=== PATIENT | male | born 1960 | race Caucasian/White ===

== ENCOUNTER 2016-11-06 12:49 | Emergency (ER) | payer OTHER ==
[~2016-11-06] VITALS: Ht 180.3 cm; Wt 136.1 kg
[2016-11-06] MEDS ORDERED: TETRACAINE 0.5% OPHTH SOLN 4ML OS ONE (13:45)
[2016-11-06] MEDS ORDERED: FLUORESCEIN OPHTH 1 MG STRIP OS ONE (13:45)
[2016-11-06] MEDS ORDERED: OFLO0.3D57 OS (14:02)
[2016-11-06 14:24] VITALS: BP 134/76
== END 2016-11-06 14:38 | disposition home or self-care (01) ==
LOC: M ED 14:08
DX: H10.212 Acute toxic conjunctivitis, left eye (principal)

== ENCOUNTER 2017-04-14 22:50 | Emergency (ER) | payer OTHER ==
[~2017-04-14] VITALS: Ht 180.3 cm; Wt 136.4 kg
[~2017-04-14 22:50] MED LIST: OFLO0.3D57 OS
[2017-04-14] MEDS ORDERED: ALBU17IN2 INH (22:59)
[2017-04-15] MEDS ORDERED: AUGM875T28 PO (02:41)
[2017-04-15 02:45] VITALS: BP 159/96
--- NOTE | 2017-04-15 08:12 | REP ---
RIGHT KNEE, FOUR VIEWS: HISTORY: Fall. COMPARISON: 02/05/2014. There is no acute fracture or dislocation. There is narrowing of the joint spaces. Osteophytes are present on the femur, tibia and patella. IMPRESSION: Degenerative change as described above. Signed by José Luis Leija MD 04/15/2017 08:13 A
== END 2017-04-15 02:50 | disposition home or self-care (01) ==
LOC: M ED 22:50
DX: S81.011A Laceration without foreign body, right knee, initial encounter (principal); W10.8XXA Fall (on) (from) other stairs and steps, initial encounter; Y92.099 Unspecified place in other non-institutional residence as the place of occurrence of the external cause; Y93.01 Activity, walking, marching and hiking; Y99.9 Unspecified external cause status

== ENCOUNTER → 2017-06-02 | Outpatient (REF) | payer OTHER ==
[~2017-06-02] MED LIST changes: +ALBU17IN2 INH; +AUGM875T28 PO
[2017-06-02 15:36] LABS: BASO % 0.6 % (0.0-1.0); EOS # 0.3 10^3/uL (0.0-0.50); IMMATURE GRANULOCYTE % 0.6 % (0-0); LYMPH # 1.7 10^3/uL (1.5-4.5); LYMPH % 26.3 % (24.0-44.0); MEAN CORPUSCULAR HEMOGLOBIN 31.2 pg (27.0-33.0); MEAN CORPUSCULAR HGB CONC 33.4 g/dl (32.0-36.5); MEAN CORPUSCULAR VOLUME 93.3 fl (80.0-96.0); MONO # 0.5 10^3/uL (0.0-0.8); MONO % 7.4 % (0.0-5.0); NEUTROPHILS % 61.1 % (36.0-66.0); PLATELET COUNT, AUTOMATED 302 10^3/uL (150-450); RED CELL DISTRIBUTION WIDTH 13.1 % (11.5-14.5); WHITE BLOOD COUNT 6.5 10^3/uL (4.0-10.0)
[2017-06-02 15:48] LABS: ALBUMIN 3.4 GM/DL (3.2-5.2); ALBUMIN/GLOBULIN RATIO 0.97 (1.00-1.93); ALKALINE PHOSPHATASE 90 U/L (45-117); ALT/SGPT 21 U/L (12-78); ANION GAP 5 MEQ/L (8-16); AST/SGOT 12 U/L (7-37); BILIRUBIN,TOTAL 0.4 MG/DL (0.2-1.0); BLOOD UREA NITROGEN 11 MG/DL (7-18); CALCIUM LEVEL 8.6 MG/DL (8.5-10.1); CARBON DIOXIDE LEVEL 33 MEQ/L (21-32); CHLORIDE LEVEL 105 MEQ/L (98-107); CHOLESTEROL LEVEL 207 MG/DL (<200); CREATININE FOR GFR 0.66 MG/DL (0.70-1.30); GLOMERULAR FILTRATION RATE > 60.0 (>56); GLUCOSE, FASTING 81 MG/DL (70-105); POTASSIUM SERUM 4.4 MEQ/L (3.5-5.1); SODIUM LEVEL 143 MEQ/L (136-145); TOTAL PROTEIN 6.9 GM/DL (6.4-8.2); TRIGLYCERIDES LEVEL 247 MG/DL (<150)
== END ==
LOC: M SFHCSACK 07:59
PROVIDERS: ATTEND Physician Assistant
DX: E78.5 Hyperlipidemia, unspecified (principal); R73.09 Other abnormal glucose; Z13.21 Encounter for screening for nutritional disorder

== ENCOUNTER → 2017-09-22 | Outpatient (REF) | payer OTHER ==
[2017-09-22 16:33] LABS: BASO % 0.5 % (0.0-1.0); EOS # 0.1 10^3/uL (0.0-0.50); EOS % 0.9 % (0.0-3.0); HEMATOCRIT 45.9 % (42.0-52.0); HEMOGLOBIN 15.4 g/dl (14.0-18.0); IMMATURE GRANULOCYTE % 0.5 % (0-3.0); LYMPH # 1.1 10^3/uL (1.5-4.5); LYMPH % 14.9 % (24.0-44.0); MEAN CORPUSCULAR HGB CONC 33.6 g/dl (32.0-36.5); MEAN CORPUSCULAR VOLUME 92.5 fl (80.0-96.0); MONO # 0.3 10^3/uL (0.0-0.8); MONO % 3.3 % (0.0-5.0); NEUTROPHILS % 79.9 % (36.0-66.0); PLATELET COUNT, AUTOMATED 296 10^3/uL (150-450); RED BLOOD COUNT 4.96 10^6/uL (4.30-6.10); RED CELL DISTRIBUTION WIDTH 13.2 % (11.5-14.5); WHITE BLOOD COUNT 7.6 10^3/uL (4.0-10.0)
[2017-09-22 16:47] LABS: ESTIMATED AVERAGE GLUCOSE 120 MG/DL (60-110); HEMOGLOBIN A1c 5.8 %
[2017-09-22 16:57] LABS: TOTAL 25(OH) VITAMIN D 16.4 NG/ML (30.0-100.0)
[2017-09-22 17:04] LABS: ALBUMIN 3.6 GM/DL (3.2-5.2); ALBUMIN/GLOBULIN RATIO 1.06 (1.00-1.93); ALKALINE PHOSPHATASE 81 U/L (45-117); ALT/SGPT 22 U/L (12-78); ANION GAP 9 MEQ/L (8-16); AST/SGOT 14 U/L (7-37); BILIRUBIN,TOTAL 0.5 MG/DL (0.2-1.0); BLOOD UREA NITROGEN 14 MG/DL (7-18); CARBON DIOXIDE LEVEL 27 MEQ/L (21-32); CHLORIDE LEVEL 106 MEQ/L (98-107); CHOLESTEROL LEVEL 209 MG/DL (<200); CHOLESTEROL RISK RATIO 5.225 (<5); CREATININE FOR GFR 0.75 MG/DL (0.70-1.30); GLOMERULAR FILTRATION RATE > 60.0 (>56); GLUCOSE, FASTING 90 MG/DL (70-100); HDL CHOLESTEROL 40 MG/DL (>40); LDL CHOLESTEROL 116.2 MG/DL (<100); NON-HDL-C 169 MG/DL; POTASSIUM SERUM 4.7 MEQ/L (3.5-5.1); SODIUM LEVEL 142 MEQ/L (136-145); TRIGLYCERIDES LEVEL 264 MG/DL (<150)
== END ==
LOC: M SFHCSACK 08:55
DX: E78.5 Hyperlipidemia, unspecified (principal); R73.09 Other abnormal glucose; E55.9 Vitamin D deficiency, unspecified
CPT/HCPCS: 80053

== ENCOUNTER → 2018-02-13 | Outpatient (RCR) | payer OTHER | LOC: M PT 08:35 | DX: M54.5 Low back pain (principal) | CPT/HCPCS: 97162 ==

== ENCOUNTER 2018-02-15 11:32 | Outpatient (RCR) | payer OTHER | END 2018-03-16 | LOC: M PT 11:32 | DX: Z51.89 Encounter for other specified aftercare (principal); M54.5 Low back pain | CPT/HCPCS: 97010 ==

== ENCOUNTER 2018-04-26 07:23 | Emergency (ER) | payer OTHER | END 2018-04-26 09:26 | disposition home or self-care (01) | LOC: M ED 07:23 | DX: S60.812A Abrasion of left wrist, initial encounter (principal); V49.49XA Driver injured in collision with other motor vehicles in traffic accident, initial encounter; Y92.410 Unspecified street and highway as the place of occurrence of the external cause; F17.210 Nicotine dependence, cigarettes, uncomplicated | CPT/HCPCS: 73110 ==

== ENCOUNTER → 2018-11-20 | Outpatient (CLI) | payer OTHER ==
[~2018-11-20] MED LIST changes: +TIZANIDINE
--- NOTE | 2018-11-21 03:44 | REP ---
Clinical: Back pain. Comparison: 12/22/2017. Technique: AP, lateral, bilateral oblique, and coned-down views. Findings: Alignment and lordosis maintained. Mild/moderate multilevel degenerative changes include endplate sclerosis with very subtle marginal spurring and minimal disc space narrowing. Findings most pronounced at the L5-S1 level. Current examination also demonstrates moderate/early advanced multilevel degenerative changes through the visualized lower thoracic spine through the T12-L1 level where bridging osteophytes with endplate sclerosis and disc space narrowing are also identified. No acute fracture / compression injury or subluxation. Impression: Moderate/early advanced multilevel degenerative changes noted involving the visualized lower thoracic and lumbosacral spine. Electronically Signed by Chavo Saravia MD 11/21/2018 03:35 A
--- NOTE | 2018-11-21 03:49 | REP ---
Clinical: Left hip pain. Technique: Two AP views of the pelvis with neutral and frog lateral views of the left hip. Findings: Moderate multilevel degenerative changes include diffuse enthesopathy along the pelvis and bilateral hips. Hip joints demonstrate increased sclerosis and joint space narrowing along the acetabular roof with marginal spurring. No acute fracture dislocation. Impression: Early moderate degenerative changes to the pelvis and hips. Electronically Signed by Chavo Saravia MD 11/21/2018 03:40 A
== END ==
LOC: M WUC 08:43
PROVIDERS: ATTEND Physician Assistant
DX: M77.9 Enthesopathy, unspecified (principal); M16.0 Bilateral primary osteoarthritis of hip; M51.37 Other intervertebral disc degeneration, lumbosacral region; M51.35 Other intervertebral disc degeneration, thoracolumbar region

== ENCOUNTER → 2019-01-01 | Outpatient (CLI) | payer OTHER ==
--- NOTE | 2019-01-01 17:00 | REP ---
Chest x-ray: Two views: History: Dyspnea. Comparison chest x-ray: January 13, 2016. Findings: The lungs are slightly hyperinflated but clear. The pleural angles are sharp. Heart size is borderline unchanged. Pulmonary vasculature is not increased. No infiltrate is seen. There are degenerative changes in the thoracic spine as before. Impression: Borderline heart size. Mild hyperinflation. Otherwise no acute disease. Electronically Signed by Casey De MD 01/02/2019 07:53 A
== END ==
LOC: M SMT 14:00
PROVIDERS: ATTEND Nurse Practitioner Family
DX: J98.4 Other disorders of lung (principal)

== ENCOUNTER 2019-01-07 18:33 | Emergency (ER) | payer OTHER ==
[~2019-01-07] VITALS: Ht 180.3 cm; Wt 136.4 kg
[2019-01-07 19:27] LABS: VENOUS BASE EXCESS 3.5 (-2.0-2.0); VENOUS HCO3 29.9 MEQ/L (23.0-27.0); VENOUS O2 SATURATION 74.2 % (60.0-80.0); VENOUS PARTIAL PRESSURE O2 40.3 mmHg (30.0-50.0); VENOUS PH 7.369 UNITS (7.330-7.430); VENOUS TOTAL CO2 31.5 MEQ/L (24.0-28.0)
[2019-01-07 19:28] LABS: BASO % 0.2 % (0.0-1.0); EOS # 0.1 10^3/uL (0.0-0.50); EOS % 0.7 % (0.0-3.0); HEMATOCRIT 37.5 % (42.0-52.0); HEMOGLOBIN 12.3 g/dl (13.5-17.5); LYMPH # 1.7 10^3/uL (1.5-4.5); LYMPH % 14.5 % (24.0-44.0); MEAN CORPUSCULAR HEMOGLOBIN 31.6 pg (27.0-33.0); MEAN CORPUSCULAR HGB CONC 32.8 g/dl (32.0-36.5); MEAN CORPUSCULAR VOLUME 96.4 fl (80.0-96.0); MONO % 8.5 % (0.0-5.0); NEUTROPHILS # 8.9 10^3/uL (1.8-7.7); NEUTROPHILS % 75.8 % (36.0-66.0); PLATELET COUNT, AUTOMATED 265 10^3/uL (150-450); RED BLOOD COUNT 3.89 10^6/uL (4.30-6.10); WHITE BLOOD COUNT 11.7 10^3/uL (4.0-10.0)
[2019-01-07 19:57] LABS: ALBUMIN 2.8 GM/DL (3.2-5.2); ALT/SGPT 15 U/L (12-78); BILIRUBIN,DIRECT 0.3 MG/DL (0.0-0.2); BILIRUBIN,TOTAL 0.7 MG/DL (0.2-1.0); BLOOD UREA NITROGEN 13 MG/DL (7-18); CALCIUM LEVEL 8.4 MG/DL (8.5-10.1); CARBON DIOXIDE LEVEL 30 MEQ/L (21-32); CHLORIDE LEVEL 104 MEQ/L (98-107); CK-MB VALUE MASS 1.4 NG/ML (<3.6); CPK CREATINE PHOSPHOKINASE 166 U/L (39-308); CREATININE FOR GFR 0.91 MG/DL (0.70-1.30); GLOMERULAR FILTRATION RATE > 60.0 (>56); GLUCOSE, FASTING 116 MG/DL (70-100); MB/CK RELATIVE INDEX 0.84 (< OR =4); NT-PRO BNP 723 PG/ML (<125); SODIUM LEVEL 141 MEQ/L (136-145); THYROXINE (T4) 6.9 UG/DL (4.5-12.0); TOTAL PROTEIN 6.5 GM/DL (6.4-8.2); TROPONIN I < 0.02 NG/ML (< 0.10)
[2019-01-07] MEDS ORDERED: IPRATROPIUM 0.5MG/ALBUTEROL 2.5MG INH SOL UD 3ML (DUONEB)(J7620) NEB ONE (20:00)
[2019-01-07] MEDS ORDERED: LEVA1TAB2 PO (20:11)
[2019-01-07] MEDS ORDERED: LASI20TA3 PO (20:11)
--- NOTE | 2019-01-07 20:16 | REP ---
Clinical : Cough and dyspnea. Comparison: 01/01/2019. Findings: Right lower lobe infiltrate suggested. Mediastinum and cardiac silhouette stable. Underlying chronic interstitial changes noted. Impression: Right lower lobe infiltrate compatible with acute pneumonia. Correlation and follow up is recommended. Electronically Signed by Chavo Saravia MD 01/07/2019 08:08 P
[2019-01-07 20:28] VITALS: BP 154/63
--- NOTE | 2019-01-08 15:32 | ECGEPIP ---
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
== END 2019-01-07 20:41 | disposition home or self-care (01) ==
LOC: M ED 18:33
DX: J69.0 Pneumonitis due to inhalation of food and vomit (principal); F17.200 Nicotine dependence, unspecified, uncomplicated

== ENCOUNTER → 2019-02-01 | Outpatient (CLI) | payer OTHER ==
[~2019-02-01] MED LIST changes: +LASI20TA3 PO; +LEVA1TAB2 PO
[2019-02-01 09:43] LABS: BASO % 0.3 % (0.0-1.0); EOS # 0.4 10^3/uL (0.0-0.50); EOS % 6.4 % (0.0-3.0); HEMATOCRIT 44.4 % (42.0-52.0); HEMOGLOBIN 14.5 g/dl (13.5-17.5); LYMPH # 2.1 10^3/uL (1.5-4.5); LYMPH % 31.4 % (24.0-44.0); MEAN CORPUSCULAR HEMOGLOBIN 31.5 pg (27.0-33.0); MEAN CORPUSCULAR HGB CONC 32.7 g/dl (32.0-36.5); MEAN CORPUSCULAR VOLUME 96.5 fl (80.0-96.0); MONO # 0.5 10^3/uL (0.0-0.8); MONO % 7.6 % (0.0-5.0); NEUTROPHILS # 3.6 10^3/uL (1.8-7.7); NEUTROPHILS % 53.9 % (36.0-66.0); PLATELET COUNT, AUTOMATED 294 10^3/uL (150-450); WHITE BLOOD COUNT 6.7 10^3/uL (4.0-10.0)
[2019-02-01 10:09] LABS: ALBUMIN 3.4 GM/DL (3.2-5.2); ALT/SGPT 17 U/L (12-78); BILIRUBIN,TOTAL 0.4 MG/DL (0.2-1.0); BLOOD UREA NITROGEN 12 MG/DL (7-18); CALCIUM LEVEL 8.8 MG/DL (8.5-10.1); CARBON DIOXIDE LEVEL 32 MEQ/L (21-32); CHLORIDE LEVEL 105 MEQ/L (98-107); CHOLESTEROL LEVEL 187 MG/DL (<200); CHOLESTEROL RISK RATIO 4.675 (<5); CREATININE FOR GFR 0.81 MG/DL (0.70-1.30); GLOMERULAR FILTRATION RATE > 60.0 (>56); GLUCOSE, FASTING 71 MG/DL (70-100); HDL CHOLESTEROL 40 MG/DL (>40); LDL CHOLESTEROL 91 MG/DL (<100); NON-HDL-C 147 MG/DL; POTASSIUM SERUM 4.6 MEQ/L (3.5-5.1); SODIUM LEVEL 140 MEQ/L (136-145); TOTAL PROTEIN 7.2 GM/DL (6.4-8.2); TRIGLYCERIDES LEVEL 278 MG/DL (<150)
[2019-02-01 10:13] LABS: HEMOGLOBIN A1c 6.1 %
[2019-02-01 11:05] LABS: TOTAL 25(OH) VITAMIN D 23.1 NG/ML (30.0-100.0)
== END ==
LOC: M WUC 08:08
PROVIDERS: ATTEND Physician Assistant
DX: R73.09 Other abnormal glucose (principal); J44.9 Chronic obstructive pulmonary disease, unspecified; E55.9 Vitamin D deficiency, unspecified; E78.5 Hyperlipidemia, unspecified

== ENCOUNTER → 2019-03-14 | Outpatient (CLI) | payer OTHER ==
[~2019-03-14] MED LIST changes: +BUPR150T5; +FURO20TA2; +MELO7.5T35; +SIMV20TA22; +SPIR12.9; +TIZA4TAB4
--- NOTE | 2019-03-14 21:44 | REP ---
Clinical: Dyspnea. Technique: PA and lateral. Comparison: 01/01/2019. Findings: Mediastinum and cardiac silhouette are normal. Coarsened interstitial markings may reflect chronic reactive airway disease versus bronchitis. No focal consolidation. No effusion. No pneumothorax. Skeletal structures intact. Impression: Cannot exclude chronic reactive airway disease and/or bronchitis. No focal consolidation. Electronically Signed by Chavo Saravia MD 03/14/2019 09:36 P
== END ==
LOC: M SMT 10:09
PROVIDERS: ATTEND Nurse Practitioner Family
DX: R06.00 Dyspnea, unspecified (principal)

== ENCOUNTER → 2019-03-22 | Outpatient (CLI) | payer OTHER ==
[~2019-03-22] MED LIST changes: -BUPR150T5; -FURO20TA2; -MELO7.5T35; -SIMV20TA22; -SPIR12.9; -TIZA4TAB4
--- NOTE | 2019-03-22 15:21 | REP ---
Clinical: Pain. Technique: AP, lateral, bilateral oblique and sunrise views of the right knee. Findings: Moderate tricompartmental osteoarthritic degenerative changes are appreciated including subchondral sclerosis, joint space narrowing, osteophytosis and minimal chondrocalcinosis. No acute fracture dislocation. No obvious effusion. Impression: Moderate tricompartmental osteoarthritic degenerative changes. Electronically Signed by Chavo Saravia MD 03/22/2019 03:12 P
== END ==
LOC: M WUC 14:43
PROVIDERS: ATTEND Family Medicine
DX: M25.561 Pain in right knee (principal); M17.11 Unilateral primary osteoarthritis, right knee

== ENCOUNTER → 2019-05-20 | Outpatient (CLI) | payer OTHER ==
[~2019-05-20] MED LIST changes: +BUPR150T5; +FURO20TA2; +MELO7.5T35; +SIMV20TA2; +SPIR12.9; +TIZA4TAB4
[2019-05-20 13:29] LABS: BLOOD UREA NITROGEN 15 MG/DL (7-18); CALCIUM LEVEL 8.5 MG/DL (8.5-10.1); CARBON DIOXIDE LEVEL 31 MEQ/L (21-32); CHLORIDE LEVEL 104 MEQ/L (98-107); CREATININE FOR GFR 0.83 MG/DL (0.70-1.30); GLOMERULAR FILTRATION RATE > 60.0 (>56); GLUCOSE, FASTING 86 MG/DL (70-100); NT-PRO BNP 135 PG/ML (<125); POTASSIUM SERUM 4.3 MEQ/L (3.5-5.1); SODIUM LEVEL 143 MEQ/L (136-145)
== END ==
LOC: M WUC 09:06
PROVIDERS: ATTEND Physician Assistant
DX: R06.02 Shortness of breath (principal)

== ENCOUNTER 2019-05-23 18:44 | Emergency (ER) | payer OTHER ==
[~2019-05-23] VITALS: Ht 180.3 cm; Wt 154.2 kg
[~2019-05-23 18:44] MED LIST changes: -BUPR150T5; -FURO20TA2; -MELO7.5T35; -SIMV20TA2; -SPIR12.9; -TIZA4TAB4
[2019-05-23] MEDS ORDERED: SPIR12.9 (18:52)
[2019-05-23] MEDS ORDERED: MELO7.5T35 (18:52)
[2019-05-23] MEDS ORDERED: BUPR150T5 (18:52)
[2019-05-23] MEDS ORDERED: SIMV20TA2 (18:52)
[2019-05-23] MEDS ORDERED: FURO20TA2 (18:52)
[2019-05-23] MEDS ORDERED: TIZA4TAB4 (18:52)
[2019-05-23] MEDS ORDERED: LIDOCAINE 1% MDV 20ML VIAL IM ONE (20:00)
[2019-05-23 20:21] VITALS: BP 153/87
== END 2019-05-23 20:44 | disposition home or self-care (01) ==
LOC: M ED 18:44
DX: S91.204A Unspecified open wound of right lesser toe(s) with damage to nail, initial encounter (principal); S50.312A Abrasion of left elbow, initial encounter; S80.02XA Contusion of left knee, initial encounter; W18.39XA Other fall on same level, initial encounter; Y92.018 Other place in single-family (private) house as the place of occurrence of the external cause; I10 Essential (primary) hypertension; J45.909 Unspecified asthma, uncomplicated; E66.8 Other obesity; Z79.899 Other long term (current) drug therapy; F17.210 Nicotine dependence, cigarettes, uncomplicated

== ENCOUNTER → 2019-06-27 | Outpatient (CLI) | payer OTHER ==
[~2019-06-27] MED LIST changes: +BUPR150T5; +FURO20TA2; +MELO7.5T35; +SIMV20TA22; +SPIR12.9; +TIZA4TAB4
--- NOTE | 2019-06-27 13:40 | REP ---
Left knee series: Four views. History: Pain. Findings: The patient was apparently unable to achieve a sunrise projection. Four views of the left knee demonstrate patellofemoral narrowing and spur formation and medial compartment narrowing and spur formation consistent with mild to moderate osteoarthritis. There is mild lateral compartment spurring. There is no evidence of significant joint effusion. Impression: Three compartment osteoarthritis. No acute bony abnormality. Electronically Signed by Casey De MD 06/27/2019 01:51 P
== END ==
LOC: M WUC 10:11
PROVIDERS: ATTEND Physician Assistant
DX: M17.12 Unilateral primary osteoarthritis, left knee (principal)

== ENCOUNTER → 2019-08-09 | Outpatient (CLI) | payer OTHER ==
[2019-08-09 15:06] LABS: BLOOD UREA NITROGEN 14 MG/DL (7-18); CALCIUM LEVEL 8.7 MG/DL (8.5-10.1); CARBON DIOXIDE LEVEL 28 MEQ/L (21-32); CHLORIDE LEVEL 107 MEQ/L (98-107); GLOMERULAR FILTRATION RATE > 60.0 (>56); GLUCOSE, FASTING 82 MG/DL (70-100); NT-PRO BNP 82 PG/ML (<125); POTASSIUM SERUM 4.4 MEQ/L (3.5-5.1); SODIUM LEVEL 141 MEQ/L (136-145)
== END ==
LOC: M SFHCSACK 09:22
PROVIDERS: ATTEND Family Medicine
DX: R06.02 Shortness of breath (principal)

== ENCOUNTER → 2019-08-09 | Outpatient (REF) | payer OTHER ==
[2019-08-09 14:52] LABS: ALBUMIN 3.6 GM/DL (3.2-5.2); ALT/SGPT 32 U/L (12-78); BILIRUBIN,TOTAL 0.6 MG/DL (0.2-1.0); BLOOD UREA NITROGEN 13 MG/DL (7-18); CALCIUM LEVEL 8.7 MG/DL (8.5-10.1); CARBON DIOXIDE LEVEL 29 MEQ/L (21-32); CHLORIDE LEVEL 107 MEQ/L (98-107); CHOLESTEROL LEVEL 219 MG/DL (<200); CHOLESTEROL RISK RATIO 6.257 (<5); CREATININE FOR GFR 0.83 MG/DL (0.70-1.30); GLOMERULAR FILTRATION RATE > 60.0 (>56); GLUCOSE, FASTING 82 MG/DL (70-100); HDL CHOLESTEROL 35 MG/DL (>40); LDL CHOLESTEROL 126 MG/DL (<100); NON-HDL-C 184 MG/DL; POTASSIUM SERUM 4.4 MEQ/L (3.5-5.1); SODIUM LEVEL 141 MEQ/L (136-145); TOTAL PROTEIN 6.8 GM/DL (6.4-8.2); TRIGLYCERIDES LEVEL 292 MG/DL (<150)
[2019-08-09 14:53] LABS: BASO % 0.6 % (0.0-1.0); EOS # 0.2 10^3/uL (0.0-0.5); EOS % 3.5 % (0.0-3.0); HEMATOCRIT 47.2 % (42.0-52.0); HEMOGLOBIN 15.3 g/dl (13.5-17.5); LYMPH # 1.8 10^3/uL (1.5-5.0); LYMPH % 29.7 % (24.0-44.0); MEAN CORPUSCULAR HEMOGLOBIN 30.8 pg (27.0-33.0); MEAN CORPUSCULAR HGB CONC 32.4 g/dl (32.0-36.5); MEAN CORPUSCULAR VOLUME 95.2 fl (80.0-96.0); MONO # 0.4 10^3/uL (0.0-0.8); MONO % 6.6 % (0.0-5.0); NEUTROPHILS # 3.7 10^3/uL (1.5-8.5); NEUTROPHILS % 59.3 % (36.0-66.0); PLATELET COUNT, AUTOMATED 277 10^3/uL (150-450); RED BLOOD COUNT 4.96 10^6/uL (4.30-6.10); WHITE BLOOD COUNT 6.2 10^3/uL (4.0-10.0)
[2019-08-09 15:23] LABS: HEMOGLOBIN A1c 5.8 %
[2019-08-09 20:35] LABS: TOTAL 25(OH) VITAMIN D 20.2 NG/ML (30.0-100.0)
== END ==
LOC: M SFHCSACK 08:42
PROVIDERS: ATTEND Physician Assistant
DX: J44.9 Chronic obstructive pulmonary disease, unspecified (principal); E78.5 Hyperlipidemia, unspecified; R73.09 Other abnormal glucose; E55.9 Vitamin D deficiency, unspecified

== ENCOUNTER 2019-08-24 01:23 | Emergency (ER) | payer OTHER ==
[~2019-08-24] VITALS: Ht 180.3 cm; Wt 145.0 kg
[2019-08-24 02:38] LABS: HEMATOCRIT 44.7 % (42.0-52.0); HEMOGLOBIN 14.6 g/dl (13.5-17.5); MEAN CORPUSCULAR HEMOGLOBIN 29.9 pg (27.0-33.0); MEAN CORPUSCULAR HGB CONC 32.7 g/dl (32.0-36.5); MEAN CORPUSCULAR VOLUME 91.4 fl (80.0-96.0); PLATELET COUNT, AUTOMATED 203 10^3/uL (150-450); RED BLOOD COUNT 4.89 10^6/uL (4.30-6.10); WHITE BLOOD COUNT 12.4 10^3/uL (4.0-10.0)
[2019-08-24 03:07] LABS: BLOOD UREA NITROGEN 12 MG/DL (7-18); CARBON DIOXIDE LEVEL 25 MEQ/L (21-32); CHLORIDE LEVEL 105 MEQ/L (98-107); CK-MB VALUE MASS 1.6 NG/ML (<3.6); CPK CREATINE PHOSPHOKINASE 289 U/L (39-308); GLOMERULAR FILTRATION RATE > 60.0 (>56); GLUCOSE, FASTING 173 MG/DL (70-100); MB/CK RELATIVE INDEX 0.55 (< OR =4); POTASSIUM SERUM 3.5 MEQ/L (3.5-5.1); SODIUM LEVEL 138 MEQ/L (136-145); TROPONIN I < 0.02 NG/ML (< 0.10)
[2019-08-24] MEDS ORDERED: methylPREDNISolone INJ 125 MG/2 ML VIAL (J2930) IV ONE (03:30)
[2019-08-24] MEDS ORDERED: IPRATROPIUM 0.5MG/ALBUTEROL 2.5MG INH SOL UD 3ML (DUONEB)(J7620) NEB ONE (03:30)
[2019-08-24 03:37] LABS: ATYPICAL LYMPH 3 % (0-5); BASOPHILS 1 % (0-1); LYMPHOCYTES 5 % (16-44); MONOCYTES 2 % (0-5); NEUTROPHILS 78 % (28-66)
[2019-08-24 03:38] LABS: ANISOCYTOSIS 1+
[2019-08-24 03:39] LABS: PLATELET ESTIMATE NORMAL (NORMAL)
[2019-08-24 04:44] LABS: INFLUENZA A AMPLIFICATION NEGATIVE (NEGATIVE); INFLUENZA B AMPLIFICATION POSITIVE (NEGATIVE)
[2019-08-24] MEDS ORDERED: PRED20TA PO (05:18)
[2019-08-24 05:23] VITALS: BP 124/68
--- NOTE | 2019-08-24 05:48 | ECGEPIP ---
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
--- NOTE | 2019-08-24 07:16 | REP ---
Clinical: Cough and dyspnea. Technique: AP and lateral views of the chest. Comparison: 03/14/2019. Findings: Evaluation is limited by technique, poor inspiratory effort and underpenetration. Basilar opacities/atelectasis (left greater than right) cannot be excluded. No obvious effusion. No pneumothorax. Impression: Significantly limited examination. Cannot exclude bibasilar (left greater than right) opacities. Electronically Signed by Chavo Saravia MD 08/24/2019 07:08 A
== END 2019-08-24 05:32 | disposition home or self-care (01) ==
LOC: M ED 01:23 → EDBD 01:23 → M ED 05:32
DX: J10.1 Influenza due to other identified influenza virus with other respiratory manifestations (principal); J20.9 Acute bronchitis, unspecified; R91.8 Other nonspecific abnormal finding of lung field; E78.5 Hyperlipidemia, unspecified; I10 Essential (primary) hypertension; J44.1 Chronic obstructive pulmonary disease with (acute) exacerbation; Z79.899 Other long term (current) drug therapy; Z79.51 Long term (current) use of inhaled steroids; Z87.891 Personal history of nicotine dependence
CPT/HCPCS: 71046; 80048; 82550; 82553; 83605; 85025; 87040; 87502; 93005; 93041; 94760; 96374; 99285; J2930

== ENCOUNTER → 2019-09-10 | Outpatient (CLI) | payer OTHER ==
[~2019-09-10] MED LIST changes: +PRED20TA PO
--- NOTE | 2019-09-10 15:43 | REP ---
CHEST, TWO VIEWS: Two views of the chest are performed. Comparison 08/24/2019 as well as other prior exams. There is improvement of left lower lobe infiltrate, but there is still mild residual. Heart is normal in size. Mediastinal silhouette is unchanged. There are degenerative changes of the spine. IMPRESSION: Mild residual left lower lobe infiltrate with improvement since 08/24/2019. Recommend continued followup. If the infiltrate does not resolve then CT of the chest would be recommended. Electronically Signed by Júnior Self MD 09/10/2019 08:22 P
== END ==
LOC: M ADAMS 14:17
PROVIDERS: ATTEND Physician Assistant
DX: J44.9 Chronic obstructive pulmonary disease, unspecified (principal)

== ENCOUNTER → 2020-01-08 | Outpatient (CLI) | payer OTHER ==
--- NOTE | 2020-01-08 11:01 | REP ---
CT CHEST WITHOUT CONTRAST: HISTORY: Moderate persistent asthma. Uncomplicated. Comparison chest x-ray September 10, 2019. CT FINDINGS: Preliminary digital refrigerator crater radiograph is unremarkable. The lung squires are free of infiltrate. No pulmonary mass is seen. No significant pulmonary nodule is appreciated. There is no evidence of hilar or mediastinal mass or adenopathy. A small to moderate sliding type hiatal hernia is noted. Minimal vascular calcification is present. No axillary or extrathoracic mass or adenopathy is observed. Normal adrenal glands are seen bilaterally. The visualized upper abdominal structures are unremarkable. No bony destructive lesion is seen. A degenerative thoracic spine changes. No endobronchial abnormality is seen. IMPRESSION: Small to moderate-sized sliding type hiatal hernia. Otherwise no active disease. Electronically Signed by Casey De MD 01/08/2020 02:56 P
== END ==
LOC: M RAD 07:00
PROVIDERS: ATTEND Nurse Practitioner Family
DX: J45.40 Moderate persistent asthma, uncomplicated (principal); K44.9 Diaphragmatic hernia without obstruction or gangrene

== ENCOUNTER → 2020-04-03 | Outpatient (CLI) | payer OTHER ==
--- NOTE | 2020-04-10 15:46 | DEXA ---
AP SPINE L1 - L4 LT FEMUR TOTAL LT FOREARM RADIUS 33% 1.073 2.1 1.1 RT FEMUR TOTAL RT FOREARM RADIUS 33% 1.023 1.5 0.6 TOTAL BODY TOTAL OTHER COMMENTS: Normal bone densitometry of the left radius. Normal bone densitometry of the right radius. FOLLOW-UP: Recommendation for the next bone density exam: 5 years. ALANNA
== END ==
LOC: M WHC 09:24
PROVIDERS: ATTEND Family Medicine
DX: Z51.81 Encounter for therapeutic drug level monitoring (principal); Z79.52 Long term (current) use of systemic steroids; Z13.820 Encounter for screening for osteoporosis

== ENCOUNTER → 2020-05-06 | Outpatient (CLI) | payer OTHER ==
--- NOTE | 2020-05-08 13:30 | SLEEPCENT ---
DATE: 05/06/2020 ORDERED BY: Tracy Clark Nocturnal polysomnography was performed for evaluation of sleep physiology in this patient with a history of excessive somnolence and snoring. There was 6 hours and 3 minutes of data reviewed. There was only 100.5 minutes of sleep identified. Sleep latency was prolonged at 84 minutes. REM sleep was not achieved. Overall sleep architecture was poor with poor sleep progress. Overall sleep efficiency was only 28.2%. The electrocardiogram showed a sinus rhythm with an average heart rate of 56 beats per minute. Rate ranged 45-80. EEG showed normal waveforms for wake and sleep. There were 63 respiratory event identified of 10 seconds in duration or greater for an apnea-hypopnea index of 37.6. The events were obstructive, to exclusive to sleep stage nor body posture. Arousals from respiratory events occurred 10.7 times per hour, and oxygen desaturations were seen to 90%. There were few limb movements of significance. IMPRESSION: Obstructive sleep apnea syndrome (G47.33). Apnea-hypopnea index 37.6. RECOMMENDATION: The patient should be encouraged to return to the sleep disorder center for pressure therapy. In the interim, alcohol and sedative avoidance should be practiced and caution exercised during the operation of motor vehicles. NAUND
== END ==
LOC: M SLEEP 20:00
PROVIDERS: ATTEND Nurse Practitioner Family
DX: G47.33 Obstructive sleep apnea (adult) (pediatric) (principal)

== ENCOUNTER → 2020-06-10 | Outpatient (CLI) | payer SELFPAY | LOC: M LABSMTC 12:43 | PROVIDERS: ATTEND Pediatrics | DX: Z20.828 Contact with and (suspected) exposure to other viral communicable diseases (principal) ==

== ENCOUNTER → 2020-08-30 | Outpatient (CLI) | payer OTHER ==
--- NOTE | 2020-08-31 13:51 | SLEEPCENT ---
DATE: 08/30/2020 NOCTURNAL POLYSOMNOGRAPHY ORDERED BY: PAULA Love Nocturnal polysomnography was performed for the titration of pressure therapy in this patient with obstructive sleep apnea syndrome with apnea-hypopnea index of 37.6. For testing a [employer]Med Quattro Mirage full face mask of medium size was used, 5 cm of water pressure were applied to the circuit, and the lights were extinguished. 6 hours and 3 minutes of data were reviewed. There were 250.5 minutes of sleep identified. Sleep latency was normal at 12 minutes. REM latency was short at 53 minutes. Sleep architecture was good with three REM cycles. Overall sleep efficiency was 69.6%. The electrocardiogram showed a sinus rhythm with an average heart rate of 60 beats per minute. EEG showed normal waveforms for wake and sleep. Respiratory events were fully palliated with CPAP at a pressure of +6 and remaining measures of sleep physiology were normal. IMPRESSION: Obstructive sleep apnea syndrome (G47.33). RECOMMENDATION: Nightly use of pressure therapy 6 cm of water.
== END ==
LOC: M SLEEP 20:00
PROVIDERS: ATTEND Nurse Practitioner Family
DX: G47.33 Obstructive sleep apnea (adult) (pediatric) (principal)

== ENCOUNTER → 2020-11-07 | Outpatient (CLI) | payer OTHER ==
[~2020-11-07] MED LIST changes: +ALBU8.5H; +ATOR1TAB19; +BUDE10.2; +INCR1INH; +MONT10TA10; +VITA50005
== END ==
LOC: M LABSMTC 09:21
PROVIDERS: ATTEND Anesthesiology
DX: Z01.812 Encounter for preprocedural laboratory examination (principal); Z11.52 Encounter for screening for COVID-19

== ENCOUNTER 2020-11-12 07:44 | Day surgery (SDC) | payer OTHER ==
[~2020-11-12] VITALS: Ht 180.3 cm; Wt 172.4 kg
[~2020-11-12 07:44] MED LIST changes: +LIDOCAINE 2% INJ 100 MG/5 ML SYRINGE As Ordered ONE; +NS 1,000 ML IV ONE; +propofoL 200 MG/20 ML VIAL As Ordered ONE
[2020-11-12] MEDS ORDERED: ALBUTEROL SULFATE 2.5 MG/0.5 ML INH NEB SOLN INH ONE (08:40)
--- NOTE | 2020-11-12 09:23 | ROOR ---
Patient Name: Tom Bullard Procedure Date: 11/12/2020 8:47 AM Date of : 1960 Age: 60 Room: [facility] Gender: Male Note Status: Finalized Procedure: Colonoscopy Indications: Screening for colorectal malignant neoplasm Providers: Franki Laguna Jr, MD Referring MD: Karli Esteban [facility] Requesting Provider: Medicines: Propofol per Anesthesia Complications: No immediate complications. Procedure: Pre-Anesthesia Assessment: - Prior to the procedure, a History and Physical was performed, and patient medications and allergies were reviewed. The patient is competent. The risks and benefits of the procedure and the sedation options and risks were discussed with the patient. All questions were answered and informed consent was obtained. Patient identification and proposed procedure were verified by the physician and the nurse in the pre-procedure area and in the procedure room. Mental Status Examination: alert and oriented. Airway Examination: normal oropharyngeal airway and neck mobility. Respiratory Examination: clear to auscultation. CV Examination: normal. ASA Grade Assessment: II - A patient with mild systemic disease. After reviewing the risks and benefits, the patient was deemed in satisfactory condition to undergo the procedure. The anesthesia plan was to use moderate sedation / analgesia (conscious sedation). Immediately prior to administration of medications, the patient was re-assessed for adequacy to receive sedatives. The heart rate, respiratory rate, oxygen saturations, blood pressure, adequacy of pulmonary ventilation, and response to care were monitored throughout the procedure. The physical status of the patient was re-assessed after the procedure. The Colonoscope was introduced through the anus and advanced to the cecum, identified by appendiceal orifice and ileocecal valve. The colonoscopy was performed without difficulty. The patient tolerated the procedure well. The quality of the bowel preparation was fair. Findings: Many small and large-mouthed diverticula were found in the sigmoid colon. A medium polyp was found in the cecum. The polyp was semi-pedunculated. The polyp was removed with a hot snare. Resection and retrieval were complete. A diminutive polyp was found in the sigmoid colon. The polyp was hyperplastic. The polyp was removed with a hot snare. Resection was complete, but the polyp tissue was not retrieved. The rectum, recto-sigmoid colon, descending colon, transverse colon, ascending colon, appendiceal orifice and ileocecal valve appeared normal. Impression: - Preparation of the colon was fair. - Diverticulosis in the sigmoid colon. - One medium polyp in the cecum, removed with a hot snare. Resected and retrieved. - One diminutive polyp in the sigmoid colon, removed with a hot snare. Complete resection. Polyp tissue not retrieved. - The rectum, recto-sigmoid colon, descending colon, transverse colon, ascending colon, appendiceal orifice and ileocecal valve are normal. Recommendation: - Discharge patient to home (ambulatory). - Repeat colonoscopy in 3 - 5 years for surveillance based on pathology results. Procedure Code(s): --- Professional --- 78257, Colonoscopy, flexible; with removal of tumor(s), polyp(s), or other lesion(s) by snare technique Diagnosis Code(s): --- Professional --- Z12.11, Encounter for screening for malignant neoplasm of colon K63.5, Polyp of colon K57.30, Diverticulosis of large intestine without perforation or abscess without bleeding CPT copyright 2019 [employer]. All rights reserved. The codes documented in this report are preliminary and upon pre coder review may be revised to meet current compliance requirements. Franki Laguna MD Franki Laguna Jr, MD 11/12/2020 9:23:21 AM Electronically signed by Franki Laguna Jr, MD Number of Addenda: 0 Note Initiated On: 11/12/2020 8:47 AM Estimated Blood Loss: Estimated blood loss: none. Estimated blood loss: none.
[2020-11-12 09:45] VITALS: BP 131/58
== END 2020-11-12 10:30 | disposition home or self-care (01) ==
LOC: M OPP 07:44
PROVIDERS: ATTEND Surgery
DX: Z12.11 Encounter for screening for malignant neoplasm of colon (principal); K63.5 Polyp of colon; K57.30 Diverticulosis of large intestine without perforation or abscess without bleeding; J44.9 Chronic obstructive pulmonary disease, unspecified; E78.5 Hyperlipidemia, unspecified; F17.210 Nicotine dependence, cigarettes, uncomplicated; Z79.899 Other long term (current) drug therapy

== ENCOUNTER 2021-04-11 14:24 | Inpatient (IN) | payer OTHER ==
[~2021-04-11] VITALS: Ht 172.7 cm; Wt 182.5 kg
[~2021-04-11 14:24] MED LIST changes: -ALBU8.5H; +ALBU8.5H INH; -ATOR1TAB19; +ATOR1TAB19 PO; -BUDE10.2; +BUDE10.2 INH; -BUPR150T5; +BUPR150T5 PO; +ERGO500029 PO; -FURO20TA2; +FURO20TA2 PO; -INCR1INH; +INCR1INH INH; -LIDOCAINE 2% INJ 100 MG/5 ML SYRINGE As Ordered ONE; -MONT10TA10; +MONT10TA10 PO; -NS 1,000 ML IV ONE; -VITA50005; -propofoL 200 MG/20 ML VIAL As Ordered ONE
[2021-04-11] MEDS ORDERED: COMBIVENT RESPIMAT 100-20MCG INHALER 4GM INH PRN (15:55)
[2021-04-11 16:13] LABS: BASO % 0.2 % (0.0-1.0); EOS # 0.1 10^3/uL (0.0-0.5); EOS % 0.8 % (0.0-3.0); HEMOGLOBIN 13.4 g/dl (13.5-17.5); LYMPH # 1.1 10^3/uL (1.5-5.0); LYMPH % 9.4 % (24.0-44.0); MEAN CORPUSCULAR HEMOGLOBIN 31.5 pg (27.0-33.0); MEAN CORPUSCULAR HGB CONC 32.7 g/dl (32.0-36.5); MEAN CORPUSCULAR VOLUME 96.5 fl (80.0-96.0); MONO # 0.7 10^3/uL (0.0-0.8); MONO % 5.8 % (2.0-8.0); NEUTROPHILS # 9.7 10^3/uL (1.5-8.5); NEUTROPHILS % 83.1 % (36.0-66.0); PLATELET COUNT, AUTOMATED 270 10^3/uL (150-450); RED BLOOD COUNT 4.25 10^6/uL (4.30-6.10); WHITE BLOOD COUNT 11.6 10^3/uL (4.0-10.0)
--- NOTE | 2021-04-11 16:21 | REP ---
INDICATION: DYSPNEA/COUGH. COMPARISON: 09/10/2027 PA and lateral exam FINDINGS: The technique utilized in obtaining the radiograph has magnified the cardiac silhouette and accentuated the interstitial markings. The examination is grossly limited by technique in addition to the portable technique the examination was obtained with extreme cephalic angulation. This factitious [place] enlarges the cardiac silhouette. Motion artifact is also identified. Basilar opacities cannot be ruled out on this markedly limited exam. IMPRESSION: The exam is markedly limited. PA and lateral views of the chest are recommended. Acute disease cannot be ruled out on this markedly limited exam. <Electronically signed by Bertrand Dhillon > 04/11/21 [id number]
[2021-04-11 16:45] LABS: ALT/SGPT 31 U/L (12-78); BILIRUBIN,DIRECT 0.1 MG/DL (0.0-0.2); BILIRUBIN,TOTAL 0.4 MG/DL (0.2-1.0); BLOOD UREA NITROGEN 13 MG/DL (7-18); CALCIUM LEVEL 8.2 MG/DL (8.8-10.2); CARBON DIOXIDE LEVEL 30 MEQ/L (21-32); CHLORIDE LEVEL 108 MEQ/L (98-107); CK-MB VALUE MASS 2.6 NG/ML (<3.6); CPK CREATINE PHOSPHOKINASE 127 U/L (39-308); CREATININE FOR GFR 0.74 MG/DL (0.70-1.30); GLOMERULAR FILTRATION RATE > 60.0 (>49); GLUCOSE, FASTING 90 MG/DL (70-100); MB/CK RELATIVE INDEX 2.05 (< OR =4); NT-PRO BNP 310 PG/ML (<125); POTASSIUM SERUM 4.5 MEQ/L (3.5-5.1); SODIUM LEVEL 141 MEQ/L (136-145); TOTAL PROTEIN 6.7 GM/DL (6.4-8.2); TROPONIN I < 0.02 NG/ML (< 0.10)
[2021-04-11] MEDS ORDERED: ISOVUE-370 76% 100ML VIAL As Ordered ONE (16:55)
[2021-04-11] MEDS ORDERED: IPRATROPIUM 0.5MG/ALBUTEROL 2.5MG INH SOL UD 3ML (DUONEB) NEB ONE (17:20)
--- NOTE | 2021-04-11 18:38 | REPVR ---
PROCEDURE INFORMATION: Exam: CTA Chest With Contrast Exam date and time: 04/11/2021 5:23 PM Age: 60 years old Clinical indication: Shortness of breath; Additional info: Rule out pe TECHNIQUE: Imaging protocol: Computed tomographic angiography of the chest with contrast. 3D rendering (Not supervised by radiologist): MIP and/or 3D reconstructed images were created by the technologist. Radiation optimization: All CT scans at this facility use at least one of these dose optimization techniques: automated exposure control; mA and/or kV adjustment per patient size (includes targeted exams where dose is matched to clinical indication); or iterative reconstruction. Contrast material: ISOVUE 370; Contrast volume: 100 ml; Contrast route: INTRAVENOUS (IV); COMPARISON: CT Chest without contrast 01/08/2020 7:31 AM FINDINGS: Pulmonary arteries: Normal. No pulmonary emboli. Aorta: Unremarkable. No aortic aneurysm. No aortic dissection. Lungs: Unremarkable. No consolidation. No masses. Pleural spaces: Unremarkable. No pneumothorax. No pleural effusion. Heart: Unremarkable. No cardiomegaly. No pericardial effusion. Mediastinal space: Small hiatal hernia. Lymph nodes: Unremarkable. No enlarged lymph nodes. Bones/joints: Unremarkable. No acute fracture. Soft tissues: Unremarkable. IMPRESSION: No pulmonary embolism. Electronically signed by: Kamaljit Gamez On 04/11/2021 18:37:42 PM
[2021-04-11] MEDS ORDERED: ACETAMINOPHEN TAB 650MG DOSE (2X325MG) PO PRN (18:40)
[2021-04-11] MEDS ORDERED: HOME MED LIST COMPLETE! XX SCH (18:45)
[2021-04-11] MEDS: IPRATROPIUM 0.5MG/ALBUTEROL 2.5MG INH SOL UD 3ML (DUONEB) NEB SCH (19:04)
[2021-04-11] MEDS: SYMBICORT 160/4.5MCG INHALER 6GM INH SCH (20:00)
[2021-04-11 20:01] LABS: ABG BASE EXCESS 1.4 (-2.0-2.0); ABG HCO3 25.8 MEQ/L (22.0-26.0); ABG O2 SATURATION 92.8 % (95.0-99.0); ABG PARTIAL PRESSURE O2 66.7 mmHg (75.0-100.0); ABG STANDARD HCO3 25.6 MEQ/L (22.0-26.0); ABG pH (ARTERIAL) 7.427 UNITS (7.350-7.450)
[2021-04-11 21:30] VITALS: BP 161/91
--- NOTE | 2021-04-11 22:42 | HPEPDOC ---
General Date of Admission Apr 11, 2021 at 18:40 Date of Service: Apr 11, 2021 Chief Complaint The patient is a 60-year-old male admitted with a reason for visit of Copd Exacerbation. History of Present Illness Tom Bullard is a 60-year-old male with significant history of hypertension, hyperlipidemia, RITU with CPAP use, morbid obesity and depression/anxiety who presents with complaints of shortness of breath. Patient reports that he has been at baseline until today when he noticed feeling more short of breath. Pt denies dominique, sinus congestion, sore throat, productive cough, palpitations, chest pain, n/v/d, abdominal pain, weakness, sensory changes or syncope. Patient does endorse smoking daily however reports he has "cut back". Upon arrival to ED he was saturating in the 80s on room air. Patient improved with 2 to 3 L of nasal cannula oxygen to 92%. Patient reports that he does feel better with oxygen but he is aware he is still wheezing. Respiratory panel positive rhinovirus. Patient reports that he has not been around anybody sick that he is aware of but he does live in a community building. Of note, patient is some poor historian but very pleasant. He does have strabismus and sounds congested versus speech impediment. Initial lab work positive leukocytosis, lactic 2, chest x-ray without consolidation. D-dimer is elevated minimally at [address] completed. CTA neg PE, neg pna. Patient will be admitted for further evaluation management presenting concerns Home Medications Scheduled Atorvastatin Calcium (Atorvastatin Calcium) 10 Mg Tablet, 10 MG PO DAILY, (Reported) Budesonide/Formoterol Fumarate (Budesonide-Formoterol 160-4.5) 10.2 Gm Hfa.aer.ad, 2 PUFF INH BID, (Reported) Bupropion Hcl (Bupropion HCl Sr) 150 Mg Tab.sr.12h, 150 MG PO BID, (Reported) Ergocalciferol (Vitamin D2) (Vitamin D2) 50,000 Units Cap, 50,000 UNITS PO 1XWK, (Reported) ON WEDNESDAYS Furosemide (Furosemide) 20 Mg Tablet, 20 MG PO DAILY, (Reported) Montelukast Sodium (Montelukast Sodium) 10 Mg Tablet, 10 MG PO DAILY, (Reported) Umeclidinium [place] (Incruse Ellipta) 62.5 Mcg Blst.w.dev, 1 PUFF INH DAILY, (Reported) Scheduled PRN Albuterol Sulfate (Albuterol Sulfate Hfa) 8.5 Gm Hfa.aer.ad, 2 PUFF INH Q4H PRN for SOB/WHEEZING, (Reported) Allergies Coded Allergies: No Known Drug Allergies (Verified Allergy, Unknown, 11/02/20) Past Medical History Medical History Hypertension, hyperlipidemia, RITU uses CPAP, depression/anxiety, smoker, morbid obesity Surgical History Hernia surgery, amputation 2 fingers Family History Significant Family History: No pertinent family hx Social History * Smoker: current smoker Alcohol: Denies Drugs: denies Recent Travel/Sick Contacts: Denies: Recent travel, Recent sick contacts Psychosocial History: Anxiety, Depression A-FIB/CHADSVASC A-FIB History Current/History of A-Fib/PAF?: No Current PO Anticoag Therapy: No Review of Systems Constitutional: Denies: Chills, Fever, Night Sweats Eyes: Denies: Pain, Vision change ENT: Denies: Head Aches, Ear Pain, Dysphagia Skin: Denies: Rash, Lesions, Breakdown Pulmonary: Reports: Dyspnea, Cough Cardiovascular: Denies: Chest Pain, Palpitations, Orthopnea, Paroxysmal Noc. Dyspnea, Lt Headedness Gastrointestinal: Denies: Nausea, Vomiting, Abdominal Pain, Diarrhea Genitourinary: Denies: Dysuria, Frequency, Incontinence, Retention Hematologic: Denies: Bruising, Bleeding Excessively Musculoskeletal: Denies: Neck Pain, Back Pain, Joint Pain, Muscle Pain, Spasms Neurological: Denies: Weakness, Numbness, Change in speech, Confusion Psych: Reports: Mood Normal; Denies: Depression, Memory Issues Physical Examination General Exam: Positive: Alert, Cooperative, No Acute Distress Eye Exam: Positive: PERRLA, Conjunctiva & lids normal, EOMI; Negative: Sclera icteric ENT Exam: Positive: Atraumatic, Mucous membr. moist/pink, Pharynx Normal Neck Exam: Positive: Supple; Negative: JVD, thyromegaly Chest Exam: Positive: Wheezing Heart Exam: Positive: Tachycardic, Normal S1, Normal S2; Negative: Murmurs, Rubs Telemetry: Positive: Sinus, PVCs Abdomen Exam: Positive: Normal bowel sounds, Soft, Other (+ Body habitus); Negative: Tenderness, Hepatospenomegaly Extremity Exam: Positive: Normal pulses; Negative: Clubbing, Cyanosis, Edema Skin Exam: Positive: Nl turgor and temperature; Negative: Breakdown, Lesion Neuro Exam: Positive: Normal Gait, Normal Speech, Cranial Nerves 3-12 NL, Reflexes 2+ Psych Exam: Positive: Mental status NL, Mood NL, Oriented x 3 Vital Signs Vital Signs Date Time Temp Pulse Resp B/P (MAP) Pulse Ox O2 Delivery O2 Flow Rate FiO2 04/11/21 21:16 83 04/11/21 20:01 148/68 (94) 93 Nasal Cannula 2.0 04/11/21 19:35 98.3 20 Laboratory Data Labs 24H Laboratory Tests 2 04/11/21 15:39: Immature Granulocyte % (Auto) 0.7, Neutrophils (%) (Auto) 83.1H, Lymphocytes (%) (Auto) 9.4L, Monocytes (%) (Auto) 5.8, Eosinophils (%) (Auto) 0.8, Basophils (%) (Auto) 0.2, Neutrophils # (Auto) 9.7H, Lymphocytes # (Auto) 1.1L, Monocytes # (Auto) 0.7, Eosinophils # (Auto) 0.1, Basophils # (Auto) 0.0, Nucleated Red Blood Cells % (auto) 0.0, D-Dimer, Quantitative 572.56H, Anion Gap 3L, Glomerular Filtration Rate > 60.0, Calcium Level 8.2L, Total Bilirubin 0.4, Direct Bilirubin 0.1, Aspartate Amino Transf (AST/SGOT) 28, Alanine Aminotransferase (ALT/SGPT) 31, Alkaline Phosphatase 93, Total Creatine Kinase 127, Creatine Kinase MB 2.6, Creatine Kinase MB Relative Index 2.05, Troponin I < 0.02, ZN-Uaf-S-Type Natriuretic Peptide 310H, Total Protein 6.7, Albumin 3.0L, Albumin/Globulin Ratio 0.8 04/11/21 15:55: POC pH (Misc Panel) 7.395, POC Base Excess (Misc Panel) 5.0H, POC Saturated Percent O2 (Misc) 95, POC pO2 (Misc Panel) 76.0L, POC pCO2 (Misc Panel) 48.2H, POC HCO3 (Misc Panel) 29.5H, POC Total CO2 (Misc Panel) 31.0H 04/11/21 19:51: Blood Gas Bicarbonate Standard 25.6, Arterial Blood pH 7.427, Arterial Blood Partial Pressure CO2 40.0, Arterial Blood Partial Pressure O2 66.7L, Arterial Blood Total CO2 27.0, Arterial Blood HCO3 25.8, Arterial Blood Base Excess 1.4, Arterial Blood Oxygen Saturation 92.8L 04/11/21 19:54: Lactic Acid Level 2.0, Procalcitonin <0.05 CBC/BMP Laboratory Tests 04/11/21 15:39 Microbiology Microbiology 04/11/21 Blood Culture, Received Pending 04/11/21 Respiratory Virus Panel (PCR) ([facility]) - Final, Complete Human Rhinovirus/Enterovirus Assessment/Plan 1. Acute respiratory failure with hypoxia 2/2 COPD Exacerbation: In setting of rhinovirus and likely complicated by pt morbid obesity/ hy poventilation syndrome. ED reported patient 80% on room air upon arrival. -Telemetry and continuous pulse -Scheduled and as needed breathing treatment -Antitussives and mucolytic's -Pulmonary toilet -Scheduled Solu-Medrol every 8 hours -Empiric coverage-CT chest reassuring without evidence of consolidation. -A.m. lab, pro-Lauro -Consider walk test to determine home oxygen 2. Hypertension:Monitor BP in setting of above. Lasix continued 3. Hyperlipidemia: Continue statin 4. ?HFrEF: Patient with mildly elevated BNP 310. Patient denies history of heart failure. He does takes Lasix 20 mg daily. He has trace possibly dependent edema versus lymphedema given body habitus. He is not appear otherwise hypervolemic. CT chest without evidence of pleural effusion. -Plan to continue Lasix -consider echo pending course. 5. Morbid obesity: As mentioned above likely contributing with hypoventilation. Complicates care. 6. Tobacco use: Encourage cessation. Nicotine patch. 7. Depression/anxiety: Monitor mood, encourage nonpharmacologic methods to manage. De-escalation techniques accordingly. Continue home medication as needed antianxiety for breakthrough anxiety. DVT prophylaxis: Lovenox subcu CODE STATUS: Full code Disposition planning: Home once clinically improved. Consider if need for home oxygen as needed. Plan / VTE VTE Prophylaxis Ordered?: Yes LOIS CHAPARRO NP Apr 11, 2021 21:36
[2021-04-11] MEDS: methylPREDNISolone 125MG 2ML VIAL IV SCH (23:35)
[2021-04-11] MEDS: ENOXAPARIN 40MG/0.4ML SYRINGE (J1650 PER 10MG) SC SCH (23:36)
[2021-04-11] MEDS: LevoFLOXacin IV 750 MG in IV 1 EA IV SCH (23:36)
[2021-04-11] MEDS: buPROPion **SR TABLET** (ZYBAN) 150MG PO SCH (23:37)
[2021-04-11] MEDS: NICOTINE 14 MG/24 HR TRANSDERMAL TD SCH (23:40)
[2021-04-11] MEDS: guaiFENesin ER 600 MG TAB PO SCH (23:40)
[2021-04-12 00:36] VITALS: O2SAT 91
[2021-04-12] MEDS: IPRATROPIUM 0.5MG/ALBUTEROL 2.5MG INH SOL UD 3ML (DUONEB) NEB SCH ×4 (01:32→20:00)
[2021-04-12] MEDS: methylPREDNISolone 125MG 2ML VIAL IV SCH ×3 (04:55→20:42)
--- NOTE | 2021-04-12 05:56 | ECGEPIP ---
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
[2021-04-12 06:00] VITALS: BP 114/61
[2021-04-12 06:43] LABS: BASO % 0.1 % (0.0-1.0); HEMATOCRIT 41.7 % (42.0-52.0); HEMOGLOBIN 13.5 g/dl (13.5-17.5); LYMPH # 0.8 10^3/uL (1.5-5.0); MEAN CORPUSCULAR HEMOGLOBIN 31.3 pg (27.0-33.0); MEAN CORPUSCULAR HGB CONC 32.4 g/dl (32.0-36.5); MEAN CORPUSCULAR VOLUME 96.5 fl (80.0-96.0); MONO # 0.2 10^3/uL (0.0-0.8); NEUTROPHILS # 14.1 10^3/uL (1.5-8.5); NEUTROPHILS % 93.4 % (36.0-66.0); PLATELET COUNT, AUTOMATED 290 10^3/uL (150-450); RED BLOOD COUNT 4.32 10^6/uL (4.30-6.10); WHITE BLOOD COUNT 15.1 10^3/uL (4.0-10.0)
[2021-04-12 07:06] LABS: BLOOD UREA NITROGEN 11 MG/DL (7-18); CALCIUM LEVEL 8.8 MG/DL (8.8-10.2); CARBON DIOXIDE LEVEL 28 MEQ/L (21-32); CHLORIDE LEVEL 106 MEQ/L (98-107); CREATININE FOR GFR 0.82 MG/DL (0.70-1.30); GLOMERULAR FILTRATION RATE > 60.0 (>49); GLUCOSE, FASTING 161 MG/DL (70-100); POTASSIUM SERUM 4.3 MEQ/L (3.5-5.1); SODIUM LEVEL 138 MEQ/L (136-145)
[2021-04-12] MEDS: SYMBICORT 160/4.5MCG INHALER 6GM INH SCH ×2 (08:06→20:28)
--- NOTE | 2021-04-12 08:51 | REP ---
INDICATION: Elevated D-dimer. COMPARISON: None. TECHNIQUE: Multiple ultrasonographic images of the deep venous structures of the bilateral lower extremity were obtained from the inguinal ligament to the ankle. Venous compression techniques, color doppler imaging, and augmentation techniques were also obtained where appropriate. As per the ACR guidelines the anterior tibial vein can not be effectively evaluated. Only compression techniques in the calf on the peroneal and posterior tibial veins was attempted/performed. FINDINGS: There is no abnormal echogenic material seen within any of the visualized deep venous structures that would suggest acute thrombosis. Coaptation is unremarkable throughout. Doppler interrogation shows an expected response to respiratory variability and augmentation in the thigh. Compression techniques in the calf were unobtainable. The color flow images show what appears to be a normal vascular pattern throughout the thigh. IMPRESSION: There is no ultrasonographic evidence of deep venous thrombosis involving any of the visualized deep venous structures of the bilateral lower extremity as described above. Due to technical parameters calf vein DVT can not be ruled out. <Electronically signed by Bertrand Dhillon > 04/12/21 [id number]
[2021-04-12] MEDS: ATORVASTATIN 10 MG TAB PO SCH (09:02)
[2021-04-12] MEDS: guaiFENesin ER 600 MG TAB PO SCH ×2 (09:02→20:43)
[2021-04-12] MEDS: PANTOPRAZOLE 40MG TAB (PROTONIX) PO SCH (09:02)
[2021-04-12] MEDS: buPROPion **SR TABLET** (ZYBAN) 150MG PO SCH ×2 (09:03→20:43)
[2021-04-12] MEDS: MONTELUKAST 10 MG TAB PO SCH (09:03)
[2021-04-12] MEDS: FUROSEMIDE 20 MG TAB PO SCH (09:03)
[2021-04-12] MEDS: LACTOBACILLUS ACIDOPHILUS CAP (BACID) PO SCH ×2 (09:03→17:46)
[2021-04-12] MEDS: ENOXAPARIN 40MG/0.4ML SYRINGE (J1650 PER 10MG) SC SCH ×2 (09:04→20:43)
[2021-04-12 11:47] VITALS: O2SAT 90
[2021-04-12 14:00] VITALS: BP 154/72
--- NOTE | 2021-04-12 14:51 | IPNPDOC ---
Text Note Date of Service The patient was seen on 04/12/21. NOTE Subjective: Patient is a 60-year-old with a PMHx of HTN, RITU on CPAP, Active smoker, DLP, Morbid obesity, Depression / Anxiety , who presented to the ER with complaints of shortness of breath. Upon arrival to ER, patient was noted to be saturating in the 80s on room air. Patient was placed on supplemental oxygen at 3 L which improved his oxygenation to 92%. Patient was admitted to the hospital service for further evaluation and treatment of his suspected COPD exacerbation. Patient was seen and examined at the bedside. . Currently he denies any chest pain or palpitations. Reports that his breathing is doing a lot better. However, he is still on supplemental oxygen. Denies any nausea, vomiting, abdominal pain, diarrhea, or urinary discomfort. Objective: Vitals (See below) General: Sitting up in chair, appears to be comfortable AAOx3 HEENT: NC, AT CVS: +S1S2 Lungs: Fair air entry b/l, bilateral wheezing in the appreciated. No rhonchi or crackles Abdomen: Soft, ND, NT Extremities: Lower tremors reveal trace pitting edema Imaging: CXR 04/11: The exam is markedly limited. PA and lateral views of the chest are recommended. Acute disease cannot be ruled out on this markedly limited exam. CTA Chest 04/11: No pulmonary embolism. Vascular 04/12: There is no ultrasonographic evidence of deep venous thrombosis involving any of the visualized deep venous structures of the bilateral lower extremity as described above. Due to technical parameters calf vein DVT can not be ruled out. Assessment and plan: Respiratory failure with hypoxia 2/2 COPD exacerbation 2/2 Rhinovirus - Currently he reports improvement of his breathing - Physical reveals wheezing bilaterally - Imaging noted above - c/w supportive care / Mucinex - c/w Solumedrol; dose reduced - c/w Levaquin (Day #2) - c/w inhaled therapy as ordered DLP - c/w Atorvastatin Diastolic CHF - No evidence of LE edema - c/w Furosemide Morbid obesity - BMI of 61.2 - Complicating medical care Tobacco use - c/w Nicotine patch Depression / Anxiety - c/w Bupropion GERD - c/w Protonix DVT prophylaxis - c/w Lovenox Disposition: - Awaiting clinical improvement VS,Sean, I+O VS, Fishbone, I+O Laboratory Tests 9/26/21 15:39 04/12/21 05:53 Vital Signs Date Time Temp Pulse Resp B/P (MAP) Pulse Ox O2 Delivery O2 Flow Rate FiO2 04/12/21 11:47 90 Nasal Cannula 2.0 04/12/21 06:00 96.8 68 18 114/61 (78) I&O- Last 24 Hours up to 6 AM 04/12/21 06:00 Intake Total 870 ml Output Total 425 ml Balance 445 ml DAVID MELLO MD Apr 12, 2021 14:51
[2021-04-12] MEDS ORDERED: BENZONATATE 100MG CAPSULE PO PRN (16:55)
[2021-04-12] MEDS: LevoFLOXacin IV 750 MG in IV 1 EA IV SCH (20:43)
[2021-04-12] MEDS: NICOTINE 14 MG/24 HR TRANSDERMAL TD SCH (20:44)
[2021-04-12 21:00] VITALS: O2SAT 93
[2021-04-12 22:00] VITALS: BP 159/78
[2021-04-13] MEDS: IPRATROPIUM 0.5MG/ALBUTEROL 2.5MG INH SOL UD 3ML (DUONEB) NEB SCH ×3 (00:37→13:21)
[2021-04-13] MEDS: methylPREDNISolone 125MG 2ML VIAL IV SCH ×2 (04:14→13:40)
[2021-04-13 05:56] LABS: BASO % 0.1 % (0.0-1.0); HEMATOCRIT 38.9 % (42.0-52.0); HEMOGLOBIN 12.7 g/dl (13.5-17.5); LYMPH % 7.5 % (24.0-44.0); MEAN CORPUSCULAR HEMOGLOBIN 31.2 pg (27.0-33.0); MEAN CORPUSCULAR HGB CONC 32.6 g/dl (32.0-36.5); MEAN CORPUSCULAR VOLUME 95.6 fl (80.0-96.0); MONO # 0.4 10^3/uL (0.0-0.8); MONO % 3.2 % (2.0-8.0); NEUTROPHILS # 11.8 10^3/uL (1.5-8.5); NEUTROPHILS % 88.3 % (36.0-66.0); PLATELET COUNT, AUTOMATED 292 10^3/uL (150-450); RED BLOOD COUNT 4.07 10^6/uL (4.30-6.10); WHITE BLOOD COUNT 13.3 10^3/uL (4.0-10.0)
[2021-04-13 06:00] VITALS: BP 153/68
[2021-04-13 06:20] LABS: BLOOD UREA NITROGEN 16 MG/DL (7-18); CALCIUM LEVEL 8.6 MG/DL (8.8-10.2); CARBON DIOXIDE LEVEL 30 MEQ/L (21-32); CHLORIDE LEVEL 107 MEQ/L (98-107); CREATININE FOR GFR 0.88 MG/DL (0.70-1.30); GLOMERULAR FILTRATION RATE > 60.0 (>49); GLUCOSE, FASTING 154 MG/DL (70-100); POTASSIUM SERUM 4.5 MEQ/L (3.5-5.1); SODIUM LEVEL 141 MEQ/L (136-145)
[2021-04-13] MEDS: SYMBICORT 160/4.5MCG INHALER 6GM INH SCH (07:25)
[2021-04-13] MEDS: PANTOPRAZOLE 40MG TAB (PROTONIX) PO SCH (08:07)
[2021-04-13] MEDS: FUROSEMIDE 20 MG TAB PO SCH (08:07)
[2021-04-13] MEDS: MONTELUKAST 10 MG TAB PO SCH (08:07)
[2021-04-13] MEDS: LACTOBACILLUS ACIDOPHILUS CAP (BACID) PO SCH (08:07)
[2021-04-13] MEDS: buPROPion **SR TABLET** (ZYBAN) 150MG PO SCH (08:07)
[2021-04-13] MEDS: ATORVASTATIN 10 MG TAB PO SCH (08:07)
[2021-04-13] MEDS: guaiFENesin ER 600 MG TAB PO SCH (08:08)
[2021-04-13] MEDS: ENOXAPARIN 40MG/0.4ML SYRINGE (J1650 PER 10MG) SC SCH (08:08)
[2021-04-13 09:38] VITALS: O2SAT 89
[2021-04-13] MEDS ORDERED: PRED10TA2 PO (11:33)
--- NOTE | 2021-04-13 22:25 | DS.PDOC ---
Discharge Summary General Date of Admission Apr 11, 2021 at 18:40 Date of Discharge 04/13/2021 Primary Care Physician: JIGNESH TOBAR D.O. Attending Physician: MIK GELLER MD Discharge Summary PROCEDURES PERFORMED DURING STAY: None ADMITTING DIAGNOSES: 1. . DISCHARGE DIAGNOSES: 1. . COMPLICATIONS/CHIEF COMPLAINT: Copd Exacerbation. HISTORY OF PRESENT ILLNESS: Tom is a pleasant 60-year-old male with significant history of morbid obesity, RITU with in consistent use of CPAP as outpatient, dyslipidemia, hypertension, and depression anxiety who presented on the evening of 04/11/2021 with chief complaint of shortness of breath. He presented by driving himself in to the hospital as he had been having increased dyspnea on exertion. Patient had stated prior to presentation that he was on his baseline until the day of presentation, when he noticed the dyspnea. He denied any sinus congestion, sore throat, productive cough, palpitations, headache, chest pain, nausea/vomiting/diarrhea, abdominal pain, loss of consciousness, weakness, numbness or paresthesias. Patient is an active smoker and does so on a daily basis but reports having "cut back," recently. On presentation the ED, patient was saturating in the 80s on room air. He significantly improved to 92% saturation with 2-3 L of nasal cannula supplemental oxygen. Patient was also feeling better after the oxygen was added but was cognizant that he was still wheezing. Respiratory viral panel was ordered and showed positive for enterovirus/rhinovirus. Patient denies any known recent sick contacts but does live in a community building. Patient is a poor historian but is pleasant according to the admission note. On admission patient sounded congested. Initial lab work showed leukocytosis with a lactic acid of 2. A chest x-ray was unremarkable for any constant salivation. A D-dimer was minimally elevated 572 and a CTA was done showing no pulmonary embolism. A bilateral lower extremity duplex ultrasound was also negative for DVT. Patient was admitted for further evaluation. HOSPITAL COURSE: Patient was admitted primarily for hypoxic respiratory failure secondary to COPD exacerbation from positive rhinovirus. Patient was given initial 80 mg IV twice a day dosing of Solu-Medrol as well as as needed inhaled therapies (both home medications were continued as were as needed in hospital inhalation support). Patient was also started on levofloxacin, but procalcitonin was unremarkable. Lactic acid also returned to normal levels on repeat. Supportive care was also ordered in the form of incentive spirometry, and Mucinex. Patient continued to be wheezy but he did have improvement of breathing on the second day into the third day and he was slowly titrated down to 2 L supplemental oxygen. On day 2, his Solu-Medrol was decreased to 40 mg IV twice a day dosing. On day 3, patient did desaturate on a 6-minute walk test and therefore the decision was made to discharge patient with home oxygen. Due to improved white count, no imaging findings supportive of active pulmonary infection other than the known rhinovirus (i.e. no pneumonia), negative procalcitonin, and resolved lactic acid, antibiotics were stopped at discharge. Patient was sent home with a oral prednisone taper dose. In addition during his stay other than his most pressing issue, his home diuretics were continued in the setting of his bilateral lower extremity edema. He was given a nicotine patch as needed for tobacco use, his home bupropion was continued for his depression anxiety, he was given his home Protonix for reflux, and he got DVT prophylaxis in the form of Lovenox. DISCHARGE MEDICATIONS: Please see below. ALLERGIES: Please see below. PHYSICAL EXAMINATION ON DISCHARGE: VITAL SIGNS: Please see below. GENERAL: Pleasant obese male seated comfortably in bedside chair. He is wearing supplemental oxygen but does not appear to be in any acute distress. HEENT: Normocephalic, atraumatic. Noninjected, anicteric sclera. There is right lateral gaze deviation that is his baseline. NECK: Thick. No significant lymphadenopathy appreciated. CARDIOVASCULAR EXAMINATION: Heart sounds were distant, regular rhythm, regular rate. Normal S1 and S2. No appreciable murmurs were heard but again this was compromised by the background respiratory sounds. RESPIRATORY EXAMINATION: Patient has on 2 L nasal cannula supplemental oxygen with no accessory muscle use that is visible. He does have audible wheezes throughout his lung squires, as well as moderate rhonchi in the bases bilaterally. Slightly decreased tidal volume. Symmetric chest expansion. No distinct crackles were appreciated. ABDOMINAL EXAMINATION: Morbidly obese. Soft nontender nondistended. Hypoactive bowel sounds. No guarding or rigidity. EXTREMITIES: There is bilateral lower extremity edema roughly 1-2+ on the right and about 2+ on the left (left is greater than right). There is no calf tenderness bilaterally. 2+ radial pulses bilaterally. There are chronic venous stasis changes evident on the left lower extremity distally. NEUROLOGICAL EXAMINATION: No gross focal neurologic deficits appreciated. Responding appropriate all questions and commands. Nondysarthric speech. PSYCHIATRIC EXAMINATION: Mood and affect appear appropriate. LABORATORY DATA: Please see below. IMAGING: Portable chest x-ray, 04/11/2021 FINDINGS: The technique utilized in obtaining the radiograph has magnified the cardiac silhouette and accentuated the interstitial markings. The examination is grossly limited by technique in addition to the portable technique the examination was obtained with extreme cephalic angulation. This factitious Dav[place] enlarges the cardiac silhouette. Motion artifact is also identified. Basilar opacities cannot be ruled out on this markedly limited exam. IMPRESSION: The exam is markedly limited. PA and lateral views of the chest are recommended. Acute disease cannot be ruled out on this markedly limited exam. CTA chest, 04/11/2021 FINDINGS: Pulmonary arteries: Normal. No pulmonary emboli. Aorta: Unremarkable. No aortic aneurysm. No aortic dissection. Lungs: Unremarkable. No consolidation. No masses. Pleural spaces: Unremarkable. No pneumothorax. No pleural effusion. Heart: Unremarkable. No cardiomegaly. No pericardial effusion. Mediastinal space: Small hiatal hernia. Lymph nodes: Unremarkable. No enlarged lymph nodes. Bones/joints: Unremarkable. No acute fracture. Soft tissues: Unremarkable. IMPRESSION: No pulmonary embolism. Bilateral lower extremity duplex ultrasound, 04/12/2021- FINDINGS: There is no abnormal echogenic material seen within any of the visualized deep venous structures that would suggest acute thrombosis. Coaptation is unremarkable throughout. Doppler interrogation shows an expected response to respiratory variability and augmentation in the thigh. Compression techniques in the calf were unobtainable. The color flow images show what appears to be a normal vascular pattern throughout the thigh. IMPRESSION: There is no ultrasonographic evidence of deep venous thrombosis involving any of the visualized deep venous structures of the bilateral lower extremity as described above. Due to technical parameters calf vein DVT can not be ruled out. PROGNOSIS: Fair ACTIVITY: As tolerated DIET: 2 g sodium diet DISPOSITION: Discharge home DISCHARGE INSTRUCTIONS & ITEMS TO FOLLOWUP ON ON OUTPATIENT: -Please take oral steroid taper medication dosing as prescribed -Please use home oxygen as needed to maintain oxygen saturation at or above 89% -Please continue using home CPAP medication -Please be seen by PCPs office within 1 week -Please follow-up with your histology specialist in 1-2 weeks -Should your presenting symptoms return and/or acutely worsen, please return to the ED for immediate evaluation -Please comply with the above treatment plan and resume all other home medications as previously prescribed -Thank you for the opportunity to participate in your care DISCHARGE CONDITION: Stable TIME SPENT ON DISCHARGE: 37 minutes Vital Signs/I&Os Vital Signs Date Time Temp Pulse Resp B/P (MAP) Pulse Ox O2 Delivery O2 Flow Rate FiO2 04/13/21 09:38 89 Room Air 04/13/21 06:00 97.4 67 20 153/68 (96) 4.0 I&O- Last 24 Hours up to 6 AM 04/13/21 06:00 Intake Total 2600 ml Output Total 1350 ml Balance 1250 ml Laboratory Data Labs 24H Laboratory Tests 2 04/13/21 05:38: Immature Granulocyte % (Auto) 0.9, Neutrophils (%) (Auto) 88.3H, Lymphocytes (%) (Auto) 7.5L, Monocytes (%) (Auto) 3.2, Eosinophils (%) (Auto) 0.0, Basophils (%) (Auto) 0.1, Neutrophils # (Auto) 11.8H, Lymphocytes # (Auto) 1.0L, Monocytes # (Auto) 0.4, Eosinophils # (Auto) 0.0, Basophils # (Auto) 0.0, Nucleated Red Blood Cells % (auto) 0.0, Anion Gap 4L, Glomerular Filtration Rate > 60.0, Calcium Level 8.6L CBC/BMP Laboratory Tests 04/13/21 05:38 Microbiology Microbiology 04/11/21 Blood Culture - Preliminary, Resulted No Growth after 48 hours. All Specime... 04/11/21 Respiratory Virus Panel (PCR) ([facility]) - Final, Complete Human Rhinovirus/Enterovirus Discharge Medications Scheduled Atorvastatin Calcium (Atorvastatin Calcium) 10 Mg Tablet, 10 MG PO DAILY, (Reported) Budesonide/Formoterol Fumarate (Budesonide-Formoterol 160-4.5) 10.2 Gm Hfa.aer.ad, 2 PUFF INH BID, (Reported) Bupropion Hcl (Bupropion HCl Sr) 150 Mg Tab.sr.12h, 150 MG PO BID, (Reported) Ergocalciferol (Vitamin D2) (Vitamin D2) 50,000 Units Cap, 50,000 UNITS PO 1XWK, (Reported) ON WEDNESDAYS Furosemide (Furosemide) 20 Mg Tablet, 20 MG PO DAILY, (Reported) Montelukast Sodium (Montelukast Sodium) 10 Mg Tablet, 10 MG PO DAILY, (Reported) Prednisone (Prednisone) 10 Mg Tablet, 10 MG PO TAPER Take 4 tabs daily x 3 days, then 3 tabs daily x 3 days, then 2 tabs daily x 3 days, then 1 tab daily x 3 days and stop Umeclidinium [place] (Incruse Ellipta) 62.5 Mcg Blst.w.dev, 1 PUFF INH DAILY, (Reported) Scheduled PRN Albuterol Sulfate (Albuterol Sulfate Hfa) 8.5 Gm Hfa.aer.ad, 2 PUFF INH Q4H PRN for SOB/WHEEZING, (Reported) Allergies Coded Allergies: No Known Drug Allergies (Verified Allergy, Unknown, 11/02/20) GME ATTESTATION My faculty preceptor for this patient encounter was physically present during the encounter and was fully available. All aspects of the patient interview, examination, medical decision making process, and medical care plan development were reviewed and approved by the faculty preceptor. The faculty preceptor is aware and concurs with the plan as stated in the body of this note and will attest to such by his/her cosignature. ATTENDING NOTE I personally examined the patient, the investigative findings and discussed and agree with the above noted plan as Mr. Bullard is discharged home. Briefly, he is a morbidly obese gentleman, current smoker, with history of COPD and RITU who was admitted for a COPD exacerbation i/s/o a rhinovirus infection with acute hypoxemic respiratory failure and rapidly improved with introduction of steroids and duonebs therapy with supplemental oxygen. He is now being discharged home with supplemental oxygen for exertional hypoxemia and will complete a steroid taper and follow up with his PCP shortly within 1 week of discharge. I also co unselled him to stop smoking and discussed the deleterious health effects of smoking cigarettes and the health benefits of weight loss and to discuss it further with his PCP. JIGNESH TOBAR D.O. Apr 13, 2021 22:25 MIK GELLER MD Apr 14, 2021 08:08
== END 2021-04-13 15:40 | disposition home health service (06) | DRG 140 ==
LOC: M ED 14:24 → M ED INP 18:40 → ENRESERV 19:01 → M MSPAV 21:20
PROVIDERS: ADMIT Family Medicine; ATTEND Internal Medicine
DX: J44.1 Chronic obstructive pulmonary disease with (acute) exacerbation (principal); I11.0 Hypertensive heart disease with heart failure; I50.32 Chronic diastolic (congestive) heart failure; E66.2 Morbid (severe) obesity with alveolar hypoventilation; Z68.44 Body mass index [BMI] 60.0-69.9, adult; R09.02 Hypoxemia; E78.5 Hyperlipidemia, unspecified; F32.9 Major depressive disorder, single episode, unspecified; F41.9 Anxiety disorder, unspecified; F17.210 Nicotine dependence, cigarettes, uncomplicated; Z79.899 Other long term (current) drug therapy; Z20.822 Contact with and (suspected) exposure to COVID-19; K21.9 Gastro-esophageal reflux disease without esophagitis; B34.1 Enterovirus infection, unspecified; J44.0 Chronic obstructive pulmonary disease with (acute) lower respiratory infection